=== PATIENT | female | born 1945 | race Caucasian/White ===

== ENCOUNTER 2016-12-19 16:55 | Emergency (ER) | payer OTHER, MEDICARE ==
[~2016-12-19] VITALS: Ht 144.8 cm; Wt 55.8 kg
[~2016-12-19 16:55] MED LIST: ATORVASTATIN CA10 M1 PO; AZOR 5-40 MG T1 EACH PO; DEXILANT60 M1 PO; LEVOTHYROXINE75 MCG PO
[2016-12-19] MEDS ORDERED: CALCIUM600 M3 PO (17:59)
--- NOTE | 2016-12-19 18:10 | ED GI/GU/ABDOMINAL COMPLAINT ---
History of Present Illness General Chief Complaint: Abdominal Pain/Flank Pain Stated Complaint: L LOWER ABD PAIN,NAUSEA,POOR APPETITE Source: patient, family Exam Limitations: no limitations Vital Signs & Intake/Output Vital Signs & Intake/Output Vital Signs Date Time Temp Pulse Resp B/P B/P Pulse O2 O2 Flow FiO2 Mean Ox Delivery Rate 12/19 2037 98.5 77 18 137/83 99 Room Air 12/19 2010 Room Air 12/19 1713 98.8 96 16 145/90 98 Room Air ED Intake and Output 12/20 0000 12/19 1200 Intake Total 1000 Output Total Balance 1000 Intake, IV 1000 Patient 123 lb Weight Weight Reported by Patient Measurement Method Allergies Coded Allergies: NO KNOWN ALLERGIES (07/18/15) Reconcile Medications Amlodipine Bes/Olmesartan Med (Ra 5-40 MG Tablet) 1 EACH TABLET 1 TAB PO DAILY BP (Reported) Atorvastatin Calcium 10 MG TABLET 1 TAB PO 2XW CHOLESTEROL (Reported) Calcium (Elemental-Fr Calcarb) (Calcium) (Unknown Strength) TABLET (Unknown Dose) PO DAILY SUPPLEMENT (Reported) Dexlansoprazole (Dexilant) 60 MG PRISCILLA.BP 1 CAP PO DAILY GI (Reported) Levothyroxine Sodium 75 MCG TABLET 1 TAB PO DAILY AC THYROID (Reported) Triage Note: TRIAGE: LLQ PAIN SINCE 11:30, REPORTS IT FEELS LIKE GAS BUT HAS NOT GONE AWAY. REPORTS BM X2 TODAY AND NORMAL. +N/-V/-D AND DECREASED APPETITE. DENIES CP/SOB. AFEBRILE. Triage Nurses Notes Reviewed? yes ? N Is pt currently ? No Onset: Gradual Duration: day(s): (1) Timing: remote history Quality/Severity: cramping Severity Numbers: 5 Location: left lower quadrant Radiation: no radiation Activities at Onset: none Prior Abdominal Problems: similar symptoms Past Sexual History: Unobtainable at this time Modifying Factors: Worsens With: movement. HPI: Patient is a 71-year-old female presenting to the emergency Department chief complaint of left lower quadrant pain that started this morning. She reports the intensity has been waxing and waning but it's been constant all day. Feels similar to gas pain that she's had in the past but it never lasted this long. Positive nausea but no vomiting. Denies chest pain or palpitations. No fevers or chills. Denies any urinary frequency or urgency or dysuria. She reports that she moved her bowels exporting 2, bowels were slightly softer than normal. No blood in the stool. No history of diverticulosis. (KATLYN JONES) Past History Travel History Traveled to [place] past 21 day No Medical History Any Pertinent Medical History? see below for history Neurological: NONE EENT: NONE Cardiovascular: hypertension, hyperlipidemia Respiratory: NONE Gastrointestinal: GERD, GASTRITIS Hepatic: NONE Renal: NONE Musculoskeletal: NONE Psychiatric: NONE Endocrine: Arcenio's thyroiditis Blood Disorders: NONE Cancer(s): NONE MACHINE TESTER/Reproductive: NONE Tetanus Vaccine: 07/18/15 Surgical History Surgical History: non-contributory Psychosocial History What is your primary language Latvian Tobacco Use: Never used ETOH Use: denies use Illicit Drug Use: denies illicit drug use Family History Hx Contributory? No (KATLYN JONES) Review of Systems Review of Systems Constitutional: Reports: no symptoms. Comments Review of systems: See HPI, All other systems negative. Constitutional, no chills fever or weight loss HEENT: No visual changes no sore throat no congestion Cardiovascular: No chest pain ,palpitation , orthopnea or ankle swelling Skin, no jaundice no rashes Respiratory: No dyspnea cough sputum or hemoptysis GI: no vomiting : No dysuria No hematuria Muscle skeletal: no back pain, no neck pain, Neurologic: No numbness no confusion, no headaches Psych: No stress anxiety or depression,. Heme/endocrine: No bruising no bleeding no polyuria or polydipsia Immunology: No splenectomy or history of AIDS (KATLYN JONES) Physical Exam Physical Exam General Appearance: well developed/nourished, no apparent distress, alert, awake , comfortable Gastrointestinal: normal bowel sounds, soft, tenderness Comments: Well-developed well-nourished person in no acute distress HEENT: Pupils equally round and reactive to light and accommodation. Nose is atraumatic. Neck: Normal inspection Back: Nontender, no CVA tenderness. Full range of motion Cardiovascular: Regular rate and rhythms no murmurs rubs or gallops, normal JVP Respiratory: Chest nontender. No respiratory distress.breath sounds clear to auscultation bilaterally Abdomen: Soft, mildly tender palpation in the left lower quadrant without rebound or guarding, nondistended, no appreciable organomegaly. Normal bowel sounds. No ascites Extremity: No edema Neuro: Alert oriented x3 Skin: No appreciable rash on exposed skin, skin is warm and dry. Psych: Mood and affect is normal, memory and judgment is normal. Core Measures ACS in differential dx? No Severe Sepsis Present: No Septic Shock Present: No (VIVIANA MIGUEL,KATLYN) Progress Differential Diagnosis: bowel obstruction, diverticulitis, gastritis, hernia, ischemic bowel, ovarian cyst, UTI/pyelo, CONSTIPATION, SBO, DIVERTICULTIIS, DIVERTICULOSIS Plan of Care: Orders Procedure Date/time Status URINALYSIS 12/19 1808 Complete LACTIC ACID 12/19 1808 Complete COMPREHENSIVE METABOLIC PANEL 12/19 1808 Complete CBC WITHOUT DIFFERENTIAL 12/19 1808 Complete Laboratory Tests 12/19/162108: Lactic Acid Cancelled 12/19/16 1857: Urine Color YEL, Urine Clarity CLEAR, Urine pH 6.0, Ur Specific [place] 1.010, Urine Protein NEG, Urine Ketones NEG, Urine Nitrite NEG, Urine Bilirubin NEG, Urine Urobilinogen 0.2, Ur Leukocyte Esterase SMALL H, Ur Microscopic SEDIMENT EXAMINED, Urine WBC 1-3 H, Ur Epithelial Cells RARE, Urine Bacteria RARE H, Urine Hemoglobin MOD H, Urine Glucose NEG 12/19/16 1830: Anion Gap 11, Estimated GFR > 60, BUN/Creatinine Ratio 30.0 H, Glucose 103 H, Lactic Acid 1.0, Calcium 9.8, Total Bilirubin 0.5, AST 19, ALT 28, Alkaline Phosphatase 70, Total Protein 7.5, Albumin 4.5, Globulin 3.0, Albumin/Globulin Ratio 1.5, CBC w Diff NO MAN DIFF REQ, RBC 5.15, MCV 84.8, MCH 28.6, RDW 14.2, MPV 9.3, Gran % 60.7, Lymphocytes % 30.1, Monocytes % 7.7, Eosinophils % 0.7, Basophils % 0.8, Absolute Granulocytes 3.0, Absolute Lymphocytes 1.5, Absolute Monocytes 0.4, Absolute Eosinophils 0, Absolute Basophils 0, PUBS MCHC 33.8 Diagnostic Imaging: Viewed by Me: CT Scan. Discussed w/RAD: CT Scan. Radiology Impression: PATIENT: TRINIDAD GALAN PRESENT AGE: 71 PATIENT ACCOUNT NO: [id number] : 46 LOCATION: ER ORDERING PHYSICIAN: KATLYN MIGUEL SERVICE DATE: 12/19/16 EXAM TYPE: CAT - CT ABD & PELVIS W IV CONTRAST EXAMINATION: CT ABDOMEN AND PELVIS WITH CONTRAST CLINICAL INFORMATION: Left lower quadrant pain. COMPARISON: None. TECHNIQUE: Contiguous axial thin section helical images of the abdomen and pelvis were performed following the administration of 94 mL of intravenous Optiray 320. The data set was reformatted in the coronal and sagittal planes and reviewed on an independent workstation. DLP: 240 mGy-cm. FINDINGS: There is mild bilateral lower lobe bronchiectasis. There is mild dependent atelectasis. There is a 4 mm nodular density within the posterior basal segment of the right lower lobe on image 39/656. The visualized lung bases are otherwise clear. The visualized portions of the heart are unremarkable. The liver is of normal size and attenuation without focal lesions nor intrahepatic biliary ductal dilation. A normal gallbladder is identified. There is no wall thickening or discernible pericholecystic fluid. The spleen, pancreas, adrenal glands are unremarkable. Both kidneys are of normal size and attenuation without hydronephrosis or nephrolithiasis. Following the administration of IV contrast, prompt symmetric nephrograms are displayed. There is no abdominal free fluid. There is neither mesenteric nor retroperitoneal lymphadenopathy. Normal unopacified loops of small and large bowel are identified. There is an appendicolith within the appendix. There is no CT evidence for appendicitis. There is no pelvic free fluid. The urinary bladder is unremarkable. There is neither pelvic nor inguinal lymphadenopathy. There is an 11 mm calcified fibroid within the left side of the uterus. There is a fat-containing lower left anterior abdominal wall hernia. Bone windows: Neither sclerotic nor lytic bone lesions are identified. IMPRESSION: No evidence for acute abdominal or pelvic inflammatory or infectious processes. Fat containing hernia within the lower left anterior abdominal wall. Appendicolith without evidence of appendicitis. 4 mm nodular density within the right lower lobe. DICTATED BY: SHI THAPA MD DATE/TIME DICTATED:12/19/162011 GARMENT PATTERNMAKER:JOSE CARLOS Initial ED EKG: none Comments: Fluids initiated on arrival. Patient declined pain medication. Patient family member informed of all of her results. She was informed that she has a hernia noted on CT scan. No signs of incarceration or strangulate. Patient will follow with PCP. Given a copy of CT results. (VIVIANA MIGUEL,KATLYN) Departure Departure Time of Disposition: 2026 Disposition: HOME OR SELF CARE Condition: Stable Clinical Impression Primary Impression: Abdominal pain Qualifiers: Abdominal location: left lower quadrant Qualified Code: R10.32 - Left lower quadrant pain Referrals: EUGENE FOURNIER MD (PCP/Family) Additional Instructions: Follow-up with your primary care physician call to make an appointment. Return for worsening symptoms or concerns. Increase fluids. Try Tylenol over-the- counter to help with pain. PATIENT: TRINIDAD GALAN PRESENT AGE: 71 PATIENT ACCOUNT NO: [id number] : 46 LOCATION: [facility] ORDERING PHYSICIAN: KATLYN MIGUEL SERVICE DATE: 12/19/16 EXAM TYPE: CAT - CT ABD & PELVIS W IV CONTRAST EXAMINATION: CT ABDOMEN AND PELVIS WITH CONTRAST CLINICAL INFORMATION: Left lower quadrant pain. COMPARISON: None. TECHNIQUE: Contiguous axial thin section helical images of the abdomen and pelvis were performed following the administration of 94 mL of intravenous Optiray 320. The data set was reformatted in the coronal and sagittal planes and reviewed on an independent workstation. DLP: 240 mGy-cm. FINDINGS: There is mild bilateral lower lobe bronchiectasis. There is mild dependent atelectasis. There is a 4 mm nodular density within the posterior basal segment of the right lower lobe on image 39/656. The visualized lung bases are otherwise clear. The visualized portions of the heart are unremarkable. The liver is of normal size and attenuation without focal lesions nor intrahepatic biliary ductal dilation. A normal gallbladder is identified. There is no wall thickening or discernible pericholecystic fluid. The spleen, pancreas, adrenal glands are unremarkable. Both kidneys are of normal size and attenuation without hydronephrosis or nephrolithiasis. Following the administration of IV contrast, prompt symmetric nephrograms are displayed. There is no abdominal free fluid. There is neither mesenteric nor retroperitoneal lymphadenopathy. Normal unopacified loops of small and large bowel are identified. There is an appendicolith within the appendix. There is no CT evidence for appendicitis. There is no pelvic free fluid. The urinary bladder is unremarkable. There is neither pelvic nor inguinal lymphadenopathy. There is an 11 mm calcified fibroid within the left side of the uterus. There is a fat-containing lower left anterior abdominal wall hernia. Bone windows: Neither sclerotic nor lytic bone lesions are identified. IMPRESSION: No evidence for acute abdominal or pelvic inflammatory or infectious processes. Fat containing hernia within the lower left anterior abdominal wall. Appendicolith without evidence of appendicitis. 4 mm nodular density within the right lower lobe. Departure Forms: Customer Survey General Discharge Information (KATLYN JONES) PA/[employer] Co-Sign Statement Statement: ED Attending supervision documentation- [] I saw and evaluated the patient. I have also reviewed all the pertinent lab results and diagnostic results. I agree with the findings and the plan of care as documented in the PA's/[employer]'s documentation. [x] I have reviewed the ED Record and agree with the PA's/[employer]'s documentation. [] Additions or exceptions (if any) to the PAs/[employer]'s note and plan are summarized below: [] (MOUSTAPHA ORTEGA,MELIZA Chapman)
[2016-12-19 18:58] LABS: ABSOLUTE BASOPHIL COUNT 0 /CUMM (0.0-0.2); ABSOLUTE EOSINOPHIL COUNT 0 /CUMM (0.0-0.7); ABSOLUTE LYMPH COUNT 1.5 /CUMM (1.2-3.4); ABSOLUTE MONOCYTE COUNT 0.4 /CUMM (0.10-0.60); BASOPHIL % 0.8 % (0.0-2.0); EOSINOPHIL % 0.7 % (0-5); GRANULOCYTE % 60.7 % (42.2-75.2); HEMATOCRIT 43.7 % (37-47); MEAN CORPUSCULAR HGB 28.6 PG (27.0-31.0); MEAN CORPUSCULAR HGB CONC 33.8 G/DL (33.0-37.0); MEAN CORPUSCULAR VOLUME 84.8 FL (81.0-99.0); MEAN PLATELET VOLUME 9.3 FL (7.4-10.4); PLATELET COUNT 273 /CUMM (130-400); RBC DISTRIBUTION WIDTH 14.2 % (11.5-14.5); RED BLOOD CELL CT 5.15 /CUMM (4.20-5.40)
--- NOTE | 2016-12-19 20:20 | CT SCAN REPORT ---
EXAMINATION: CT ABDOMEN AND PELVIS WITH CONTRAST CLINICAL INFORMATION: Left lower quadrant pain. COMPARISON: None. TECHNIQUE: Contiguous axial thin section helical images of the abdomen and pelvis were performed following the administration of 94 mL of intravenous Optiray 320. The data set was reformatted in the coronal and sagittal planes and reviewed on an independent workstation. DLP: 240 mGy-cm. FINDINGS: There is mild bilateral lower lobe bronchiectasis. There is mild dependent atelectasis. There is a 4 mm nodular density within the posterior basal segment of the right lower lobe on image 39/656. The visualized lung bases are otherwise clear. The visualized portions of the heart are unremarkable. The liver is of normal size and attenuation without focal lesions nor intrahepatic biliary ductal dilation. A normal gallbladder is identified. There is no wall thickening or discernible pericholecystic fluid. The spleen, pancreas, adrenal glands are unremarkable. Both kidneys are of normal size and attenuation without hydronephrosis or nephrolithiasis. Following the administration of IV contrast, prompt symmetric nephrograms are displayed. There is no abdominal free fluid. There is neither mesenteric nor retroperitoneal lymphadenopathy. Normal unopacified loops of small and large bowel are identified. There is an appendicolith within the appendix. There is no CT evidence for appendicitis. There is no pelvic free fluid. The urinary bladder is unremarkable. There is neither pelvic nor inguinal lymphadenopathy. There is an 11 mm calcified fibroid within the left side of the uterus. There is a fat-containing lower left anterior abdominal wall hernia. Bone windows: Neither sclerotic nor lytic bone lesions are identified. IMPRESSION: No evidence for acute abdominal or pelvic inflammatory or infectious processes. Fat containing hernia within the lower left anterior abdominal wall. Appendicolith without evidence of appendicitis. 4 mm nodular density within the right lower lobe.
[2016-12-19 20:38] VITALS: BP 137/83
== END 2016-12-19 20:45 ==
LOC: ERH 16:55
PROVIDERS: Physician Assistant
DX: R10.32 Left lower quadrant pain (principal)
CPT/HCPCS: 74177; 81001